=== PATIENT | male | born 1955 | race Caucasian/White ===

== ENCOUNTER 2017-09-07 12:19 | Inpatient (IN) | payer MEDICAID, OTHER ==
[~2017-09-07] VITALS: Ht 185.4 cm; Wt 72.5 kg
[2017-09-07] MEDS ORDERED: ALBUTEROL/IPRATROPIUM 2.5MG/0.5MG, 3 ML NPPB ONE (12:30)
[2017-09-07] MEDS ORDERED: SODIUM CHLORIDE FLUSH 10ML SYR IVF ONE (12:30)
[2017-09-07] MEDS ORDERED: methylPREDNISolone SOD SUCC 125 MG/2 ML IVP ONE (12:30)
[2017-09-07] MEDS ORDERED: LORazepam 2 MG/ML, 1ML ONE (12:45)
[2017-09-07] MEDS ORDERED: methylPREDNISolone SOD SUCC 125 MG/2 ML ONE (12:46)
[2017-09-07 12:48] LABS: BASOPHILS # (AUTO) 0.09 x10^3/uL (0-0.1); BASOPHILS % (AUTO) 1 % (0-1); EOSINOPHILS # (AUTO) 0.02 x10^3/uL (0-0.4); EOSINOPHILS % (AUTO) 0 % (1-7); LYMPHOCYTES # (AUTO) 0.82 x10^3/uL (1-3.4); LYMPHOCYTES % (AUTO) 8 % (22-44); MD NO; MEAN CORPUSCULAR HEMOGLOBIN 30.8 pg (27.5-34.5); MEAN CORPUSCULAR HGB CONC 34.1 g/dL (33.2-36.2); MEAN CORPUSCULAR VOLUME 90.2 fL (81-97); MEAN PLATELET VOLUME 7.7 fL (7.4-10.4); MONOCYTES # (AUTO) 0.81 x10^3/uL (0.2-0.8); MONOCYTES % (AUTO) 8 % (2-9); NEUTROPHILS # (AUTO) 8.53 x10^3/uL (1.8-6.8); NEUTROPHILS % (AUTO) 83 % (42-75); PLATELET COUNT 256 x10^3/uL (130-400); RED BLOOD COUNT 4.76 x10^6/uL (4.38-5.82); RED CELL DISTRIBUTION WIDTH 13.9 % (9.4-14.8)
[2017-09-07] MEDS ORDERED: ALBUTEROL/IPRATROPIUM 2.5MG/0.5MG, 3 ML ONE (12:51)
[2017-09-07 12:55] LABS: INTERNATIONAL NORMALIZED RATIO 1.01 (0.93-1.1); PROTHROMBIN TIME 10.4 Seconds (9.6-11.5)
[2017-09-07] MEDS ORDERED: LORazepam 2 MG/ML, 1ML IVPush ONE (13:00)
[2017-09-07 13:01] LABS: ALBUMIN 3.6 g/dL (3.4-5.0); ANION GAP 7 mmol/L (5-15); CALCIUM 8.5 mg/dL (8.5-10.1); CHLORIDE 106 mmol/L (98-107)
[2017-09-07 13:02] LABS: CREATININE 0.81 mg/dL (0.7-1.3)
[2017-09-07] MEDS ORDERED: SODIUM CHLORIDE FLUSH 10ML SYR IVF PRN (15:00)
[2017-09-07] MEDS ORDERED: HYDROmorphone 1 MG/ML, 1ML IVPush PRN (15:00)
[2017-09-07] MEDS ORDERED: ONDANSETRON 2MG/ML, 2ML IVPush PRN ×2 (15:00→15:30)
[2017-09-07] MEDS ORDERED: HYDROmorphone 2 MG/ML, 1ML ONE (15:12)
[2017-09-07] MEDS ORDERED: ONDANSETRON 2MG/ML, 2ML ONE (15:14)
[2017-09-07] MEDS ORDERED: DOCUSATE 100 MG CAPSULE PO PRN (15:30)
[2017-09-07] MEDS ORDERED: ACETAMINOPHEN 325 MG TABLET PO PRN (15:30)
[2017-09-07] MEDS ORDERED: BISACODYL 10 MG SUPP PR PRN (15:30)
[2017-09-07] MEDS ORDERED: POLYETHYLENE GLYCOL 17 GM PACKET PO PRN (15:30)
[2017-09-07 16:50] VITALS: BP 155/90
[2017-09-07] MEDS: ENOXAPARIN 40 MG/0.4 ML SQ SCH (17:29)
[2017-09-07] MEDS: ALBUTEROL/IPRATROPIUM 2.5MG/0.5MG, 3 ML NPPB SCH (19:16)
[2017-09-07 19:38] VITALS: BP 144/90
[2017-09-07] MEDS: KETOROLAC 30 MG/1 ML IVPush PRN (20:05)
[2017-09-07] MEDS: SODIUM CHLORIDE FLUSH 10ML SYR IVF SCH (20:07)
[2017-09-08 01:18] VITALS: BP 131/84
[2017-09-08 05:32] LABS: BASOPHILS # (AUTO) 0.04 x10^3/uL (0-0.1); BASOPHILS % (AUTO) 0 % (0-1); EOSINOPHILS % (AUTO) 0 % (1-7); LYMPHOCYTES # (AUTO) 0.68 x10^3/uL (1-3.4); LYMPHOCYTES % (AUTO) 5 % (22-44); MD NO; MEAN CORPUSCULAR HEMOGLOBIN 30.5 pg (27.5-34.5); MEAN CORPUSCULAR HGB CONC 33.5 g/dL (33.2-36.2); MEAN CORPUSCULAR VOLUME 90.9 fL (81-97); MEAN PLATELET VOLUME 8.5 fL (7.4-10.4); MONOCYTES # (AUTO) 0.88 x10^3/uL (0.2-0.8); MONOCYTES % (AUTO) 7 % (2-9); NEUTROPHILS # (AUTO) 11.44 x10^3/uL (1.8-6.8); NEUTROPHILS % (AUTO) 88 % (42-75); PLATELET COUNT 237 x10^3/uL (130-400); RED BLOOD COUNT 4.24 x10^6/uL (4.38-5.82); RED CELL DISTRIBUTION WIDTH 13.9 % (9.4-14.8)
[2017-09-08 05:50] LABS: CHLORIDE 103 mmol/L (98-107)
[2017-09-08 06:05] LABS: ANION GAP 7 mmol/L (5-15); CALCIUM 8.4 mg/dL (8.5-10.1); CREATININE 0.81 mg/dL (0.7-1.3)
[2017-09-08] MEDS: ALBUTEROL/IPRATROPIUM 2.5MG/0.5MG, 3 ML NPPB SCH ×4 (06:55→19:30)
[2017-09-08 07:08] VITALS: BP 117/77
[2017-09-08] MEDS: KETOROLAC 30 MG/1 ML IVPush PRN ×2 (08:03→16:39)
[2017-09-08] MEDS: SODIUM CHLORIDE FLUSH 10ML SYR IVF SCH ×2 (08:03→20:38)
[2017-09-08] MEDS ORDERED: AZITHROMYCIN 500 MG TABLET PO ONE (09:30)
[2017-09-08 12:36] VITALS: BP 113/73
[2017-09-08] MEDS: BACLOFEN 10 MG TABLET PO SCH ×2 (16:39→20:38)
[2017-09-08] MEDS: ENOXAPARIN 40 MG/0.4 ML SQ SCH (16:40)
[2017-09-08 20:20] VITALS: BP 119/82
[2017-09-08] MEDS: GUAIFENESIN ER 600 MG TABLET PO SCH (20:38)
[2017-09-09 02:47] VITALS: BP 115/74
[2017-09-09] MEDS: KETOROLAC 30 MG/1 ML IVPush PRN ×3 (03:50→15:46)
[2017-09-09 05:16] LABS: BASOPHILS # (AUTO) 0.08 x10^3/uL (0-0.1); BASOPHILS % (AUTO) 1 % (0-1); EOSINOPHILS # (AUTO) 0.03 x10^3/uL (0-0.4); EOSINOPHILS % (AUTO) 0 % (1-7); LYMPHOCYTES # (AUTO) 0.83 x10^3/uL (1-3.4); LYMPHOCYTES % (AUTO) 8 % (22-44); MD NO; MEAN CORPUSCULAR HEMOGLOBIN 30.3 pg (27.5-34.5); MEAN CORPUSCULAR HGB CONC 33.2 g/dL (33.2-36.2); MEAN CORPUSCULAR VOLUME 91.1 fL (81-97); MEAN PLATELET VOLUME 8.5 fL (7.4-10.4); MONOCYTES # (AUTO) 0.89 x10^3/uL (0.2-0.8); MONOCYTES % (AUTO) 9 % (2-9); NEUTROPHILS # (AUTO) 8.21 x10^3/uL (1.8-6.8); NEUTROPHILS % (AUTO) 82 % (42-75); PLATELET COUNT 214 x10^3/uL (130-400); RED BLOOD COUNT 4.06 x10^6/uL (4.38-5.82)
[2017-09-09 06:46] VITALS: BP 113/75
[2017-09-09] MEDS: ALBUTEROL/IPRATROPIUM 2.5MG/0.5MG, 3 ML NPPB SCH ×4 (07:02→19:24)
[2017-09-09] MEDS: GUAIFENESIN ER 600 MG TABLET PO SCH ×2 (08:23→20:44)
[2017-09-09] MEDS: BACLOFEN 10 MG TABLET PO SCH ×3 (08:23→20:44)
[2017-09-09] MEDS: SODIUM CHLORIDE FLUSH 10ML SYR IVF SCH ×2 (09:33→20:44)
[2017-09-09] MEDS: AZITHROMYCIN 250 MG TABLET PO SCH (10:08)
[2017-09-09 14:10] VITALS: BP 118/79
[2017-09-09] MEDS: ENOXAPARIN 40 MG/0.4 ML SQ SCH (17:36)
[2017-09-09 19:45] VITALS: BP 119/76
[2017-09-10 02:47] VITALS: BP 129/81
[2017-09-10] MEDS: KETOROLAC 30 MG/1 ML IVPush PRN ×3 (02:58→15:58)
[2017-09-10 04:35] LABS: BASOPHILS # (AUTO) 0.03 x10^3/uL (0-0.1); BASOPHILS % (AUTO) 0 % (0-1); EOSINOPHILS # (AUTO) 0.11 x10^3/uL (0-0.4); EOSINOPHILS % (AUTO) 1 % (1-7); LYMPHOCYTES # (AUTO) 0.71 x10^3/uL (1-3.4); LYMPHOCYTES % (AUTO) 8 % (22-44); MD NO; MEAN CORPUSCULAR HEMOGLOBIN 30.6 pg (27.5-34.5); MEAN CORPUSCULAR HGB CONC 33.7 g/dL (33.2-36.2); MEAN CORPUSCULAR VOLUME 90.7 fL (81-97); MEAN PLATELET VOLUME 8.2 fL (7.4-10.4); MONOCYTES # (AUTO) 0.91 x10^3/uL (0.2-0.8); MONOCYTES % (AUTO) 10 % (2-9); NEUTROPHILS # (AUTO) 7.03 x10^3/uL (1.8-6.8); NEUTROPHILS % (AUTO) 80 % (42-75); PLATELET COUNT 219 x10^3/uL (130-400); RED BLOOD COUNT 3.89 x10^6/uL (4.38-5.82); RED CELL DISTRIBUTION WIDTH 13.5 % (9.4-14.8)
[2017-09-10 04:46] LABS: ANION GAP 6 mmol/L (5-15); CALCIUM 8.1 mg/dL (8.5-10.1); CHLORIDE 100 mmol/L (98-107)
[2017-09-10 04:47] LABS: CREATININE 0.79 mg/dL (0.7-1.3)
[2017-09-10] MEDS: ALBUTEROL/IPRATROPIUM 2.5MG/0.5MG, 3 ML NPPB SCH ×4 (07:00→19:03)
[2017-09-10 07:25] VITALS: BP 122/77
[2017-09-10] MEDS: SODIUM CHLORIDE FLUSH 10ML SYR IVF SCH ×2 (09:11→20:56)
[2017-09-10] MEDS: BACLOFEN 10 MG TABLET PO SCH ×3 (09:11→20:56)
[2017-09-10] MEDS: AZITHROMYCIN 250 MG TABLET PO SCH (09:11)
[2017-09-10] MEDS: GUAIFENESIN ER 600 MG TABLET PO SCH ×2 (09:11→20:56)
[2017-09-10 13:19] VITALS: BP_SYST 114; BP_SYST 124; BP_DIAS 78
[2017-09-10] MEDS: methylPREDNISolone SOD SUCC 125 MG/2 ML IVPush SCH ×2 (14:36→20:56)
[2017-09-10] MEDS: ENOXAPARIN 40 MG/0.4 ML SQ SCH (17:29)
[2017-09-10 18:52] VITALS: BP 152/87
[2017-09-11] MEDS: CEFTRIAXONE PMX 1GM/50ML 50 ML IV SCH (01:56)
[2017-09-11] MEDS: methylPREDNISolone SOD SUCC 125 MG/2 ML IVPush SCH ×4 (02:02→19:53)
[2017-09-11] MEDS: KETOROLAC 30 MG/1 ML IVPush PRN ×3 (02:03→18:35)
[2017-09-11 02:21] VITALS: BP 135/82
[2017-09-11 05:29] LABS: MEAN CORPUSCULAR HEMOGLOBIN 30.6 pg (27.5-34.5); MEAN CORPUSCULAR HGB CONC 33.6 g/dL (33.2-36.2); MEAN CORPUSCULAR VOLUME 90.9 fL (81-97); MEAN PLATELET VOLUME 8.5 fL (7.4-10.4); PLATELET COUNT 247 x10^3/uL (130-400); RED BLOOD COUNT 3.96 x10^6/uL (4.38-5.82); RED CELL DISTRIBUTION WIDTH 13.7 % (9.4-14.8)
[2017-09-11 05:51] LABS: CHLORIDE 102 mmol/L (98-107)
[2017-09-11 06:03] LABS: ALBUMIN 2.4 g/dL (3.4-5.0); ANION GAP 8 mmol/L (5-15); CALCIUM 8.6 mg/dL (8.5-10.1); CREATININE 0.93 mg/dL (0.7-1.3)
[2017-09-11 06:13] LABS: BASOPHILS % (AUTO) 0 % (0-1); EOSINOPHILS % (AUTO) 0 % (1-7); LYMPHOCYTES # (AUTO) 0.32 x10^3/uL (1-3.4); LYMPHOCYTES % (AUTO) 4 % (22-44); MD SCAN; MONOCYTES % (AUTO) 1 % (2-9); NEUTROPHILS # (AUTO) 7.58 x10^3/uL (1.8-6.8); NEUTROPHILS % (AUTO) 95 % (42-75)
[2017-09-11] MEDS: ALBUTEROL/IPRATROPIUM 2.5MG/0.5MG, 3 ML NPPB SCH ×4 (07:00→20:37)
[2017-09-11] MEDS: GUAIFENESIN ER 600 MG TABLET PO SCH ×2 (08:04→19:53)
[2017-09-11] MEDS: AZITHROMYCIN 250 MG TABLET PO SCH (08:04)
[2017-09-11] MEDS: BACLOFEN 10 MG TABLET PO SCH ×3 (08:04→19:53)
[2017-09-11] MEDS: SODIUM CHLORIDE FLUSH 10ML SYR IVF SCH ×2 (08:05→19:53)
[2017-09-11 08:13] VITALS: BP 128/82
[2017-09-11 11:12] LABS: ANION GAP 7 mmol/L (5-15); CALCIUM 8.6 mg/dL (8.5-10.1); CHLORIDE 102 mmol/L (98-107); CREATININE 0.82 mg/dL (0.7-1.3)
[2017-09-11 13:47] VITALS: BP 116/75
[2017-09-11] MEDS: ENOXAPARIN 40 MG/0.4 ML SQ SCH (16:35)
[2017-09-11 20:49] VITALS: BP 112/72
[2017-09-12] MEDS: KETOROLAC 30 MG/1 ML IVPush PRN ×3 (00:18→15:09)
[2017-09-12 01:04] VITALS: BP 156/85
[2017-09-12] MEDS: methylPREDNISolone SOD SUCC 125 MG/2 ML IVPush SCH ×3 (02:14→15:09)
[2017-09-12] MEDS: CEFTRIAXONE PMX 1GM/50ML 50 ML IV SCH (02:14)
[2017-09-12 05:16] LABS: ANION GAP 4 mmol/L (5-15); CALCIUM 8.7 mg/dL (8.5-10.1); CHLORIDE 103 mmol/L (98-107); CREATININE 0.89 mg/dL (0.7-1.3)
[2017-09-12 06:01] LABS: BASOPHILS % (AUTO) 0 % (0-1); EOSINOPHILS % (AUTO) 0 % (1-7); LYMPHOCYTES # (AUTO) 0.44 x10^3/uL (1-3.4); LYMPHOCYTES % (AUTO) 3 % (22-44); MD NO; MEAN CORPUSCULAR HEMOGLOBIN 30.6 pg (27.5-34.5); MEAN CORPUSCULAR HGB CONC 33.5 g/dL (33.2-36.2); MEAN CORPUSCULAR VOLUME 91.2 fL (81-97); MEAN PLATELET VOLUME 8.4 fL (7.4-10.4); MONOCYTES # (AUTO) 0.57 x10^3/uL (0.2-0.8); MONOCYTES % (AUTO) 5 % (2-9); NEUTROPHILS # (AUTO) 11.78 x10^3/uL (1.8-6.8); NEUTROPHILS % (AUTO) 92 % (42-75); PLATELET COUNT 318 x10^3/uL (130-400); RED BLOOD COUNT 3.93 x10^6/uL (4.38-5.82); RED CELL DISTRIBUTION WIDTH 13.5 % (9.4-14.8)
[2017-09-12] MEDS: ALBUTEROL/IPRATROPIUM 2.5MG/0.5MG, 3 ML NPPB SCH ×3 (07:20→15:40)
[2017-09-12 07:49] VITALS: BP 138/83
[2017-09-12] MEDS: SODIUM CHLORIDE FLUSH 10ML SYR IVF SCH (08:32)
[2017-09-12] MEDS: GUAIFENESIN ER 600 MG TABLET PO SCH (08:32)
[2017-09-12] MEDS: AZITHROMYCIN 250 MG TABLET PO SCH (08:32)
[2017-09-12] MEDS: BACLOFEN 10 MG TABLET PO SCH ×2 (08:32→16:21)
[2017-09-12] MEDS ORDERED: AZIT250T89 PO (11:06)
[2017-09-12] MEDS ORDERED: CEFD300C37 PO (11:06)
[2017-09-12] MEDS ORDERED: GUAI600T31 PO (11:06)
[2017-09-12] MEDS ORDERED: PRED10TA PO (11:08)
[2017-09-12] MEDS ORDERED: CEFTRIAXONE PMX 1GM/50ML 50 ML IV SCH (11:30)
[2017-09-12] MEDS ORDERED: FLU VACC QS2017-18 (36MOS+) UP/PF 0.5 ML IM-VACC ONE (12:00)
[2017-09-12] MEDS ORDERED: PNEUMOCOCCAL 23 VACCINE IM-VACC ONE (12:00)
[2017-09-12 13:23] VITALS: BP 128/76
[2017-09-12 16:37] VITALS: BP 145/87
== END 2017-09-12 17:09 | DRG 551 ==
LOC: ED 13:21 → EDIP 14:48 → 4NOR 16:35
PROVIDERS: ADMIT Internal Medicine; ATTEND Internal Medicine
PROC: 0QS3XZZ Reposition Left Pelvic Bone, External Approach (ICD-10-PCS; principal; 2017-09-07)
DX: S32.10XA Unspecified fracture of sacrum, initial encounter for closed fracture (principal); J96.01 Acute respiratory failure with hypoxia; E43 Unspecified severe protein-calorie malnutrition; J18.9 Pneumonia, unspecified organism; Z99.81 Dependence on supplemental oxygen; S32.810A Multiple fractures of pelvis with stable disruption of pelvic ring, initial encounter for closed fracture; J44.0 Chronic obstructive pulmonary disease with (acute) lower respiratory infection; J44.1 Chronic obstructive pulmonary disease with (acute) exacerbation; E11.65 Type 2 diabetes mellitus with hyperglycemia; F17.210 Nicotine dependence, cigarettes, uncomplicated; I25.10 Atherosclerotic heart disease of native coronary artery without angina pectoris; W01.0XXA Fall on same level from slipping, tripping and stumbling without subsequent striking against object, initial encounter; R55 Syncope and collapse; D72.829 Elevated white blood cell count, unspecified; Y93.89 Activity, other specified; Z82.49 Family history of ischemic heart disease and other diseases of the circulatory system; Y92.098 Other place in other non-institutional residence as the place of occurrence of the external cause; Z83.3 Family history of diabetes mellitus; Y99.8 Other external cause status; Z23 Encounter for immunization
CPT/HCPCS: 36415; 71045; 72192; 80048; 82040; 83735; 84100; 85025; 85610; 85730; 87070; 87205; 90686; 90732; 93005; 94640; 96374; 96375; J0696; J1650; J1885; J2405; J7620; J2060; J2930